=== PATIENT | male | born 1965 | race Caucasian/White ===

== ENCOUNTER → 2016-12-31 | Day surgery (SDC) | payer OTHER ==
--- NOTE | 2016-12-22 10:20 | MH ---
cc: HELGA RUGGIERO M.D. DATE OF ADMISSION 12/31/2016 ADMISSION DIAGNOSIS 1. 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 Pain of the left elbow HISTORY OF PRESENT ILLNESS The patient is a 51-year-old white male who has experienced bilateral elbow pain of almost two years duration. He had noted the onset of his symptoms initially related to golfing activities, has occurred when he was hitting golf balls into a practice net in a repetitive fashion. He became quite enthusiastic with regards to this routine that resulted in pain involving the lateral aspect of both elbows for which he was initially evaluated by his primary care physician who treated the patient with a series of cortisone injections about both elbows with only temporary relief being noted. The patient also was taking meloxicam and gabapentin for additional medication. He had to discontinue his golfing activities but continued to exercise on a routine basis while experiencing pain about both elbows for which he subsequently began wearing an elastic elbow support and alternating between Bob-Gordon and icy hot application. He later underwent orthopedic evaluation with MRI scan of the left elbow reporting extensor tendinopathy and a partial thickness interstitial tear and adjacent tendinosis. A similar study of the right elbow had noted moderately severe tendinosis and a proximal common extensor tendon without an associated tear being reported. The patient continued to conform to conservative management but remained symptomatic with pain about both elbows for which he was later seen by the undersigned physician. At that time, he was treated with local cortisone injection and began utilizing both Aleve and Voltaren gel while being followed on an outpatient basis. He initially was able to experience some trend of improvement, but his symptoms gradually recurred for which he returned to the office in follow-up disposition. Repeat injections unfortunately did not provide the patient with the long-term benefit that he was seeking and thus he subsequently underwent operative intervention of his right elbow in October of this year that involved an osteoplasty of the elbow joint. The patient was able to experience a favorable response from treatment. He returned to the office in November of this year reporting that he was noting increasing mobility and lessening discomfort about the right elbow while continuing to experience lingering symptoms about his left elbow and, given the benefit from surgery that he had experienced, he expressed his desire to proceed with similar treatment about his left elbow. In compliance with his wishes, he has currently been scheduled for admission to the hospital in order that an osteoplasty of the left elbow be completed. He is right-hand dominant. PAST MEDICAL HISTORY, HOSPITALIZATIONS AND SURGERIES 1. Arthroscopic rotator cuff repair of the left shoulder 2. Arthrotomy of the right shoulder for history of trauma following a fall while participating in softball, a reconstructive procedure being completed at that time. 3. He has undergone cystoscopy and lithotripsy for history of renal lithiasis, 4. Hospitalization for cardiac observation later diagnosed as being stress. He denies active medical illnesses. MEDICATIONS Current medications Tramadol p.r.n. pain. ALLERGIES He denies any known drug allergies. REVIEW OF SYSTEMS He does wear glasses. No headache, seizure or syncope. No sinus congestion or epistaxis. Auditory acuity intact. No tinnitus. No bleeding gums or dysphagia. No cough, shortness of breath, upper respiratory infection, pneumonia or tuberculosis. No angina or heart disease. Appetite is good. Bowel movements regular. No hepatitis, gallbladder disease, ulcers or hemorrhoids. No urinary tract infection. He has a history of kidney stones. No prostate disease. Fracture of the right clavicle. History of herniated disk of his lumbosacral spine. No psychiatric illness. Remaining review of systems is unremarkable and noncontributory. FAMILY HISTORY The patient has been for over 10 years. He has one son and two daughters, all described as being in good health. His family history is positive for hypertension, diabetes, heart disease, kidney disease and skin cancer. SOCIAL HISTORY The patient completed an AA degree. 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 He denies active use of tobacco for at least five years but had been a 20 pack-year user in the past. Ethanol consumption very limited basis socially. PHYSICAL EXAMINATION GENERAL: Height 5 feet 8 inches, weight 175 pounds. An alert, oriented and responsive 51-year-old white male who sits quietly upon examination table with no apparent distress. HEENT: Pupils are equally round and reactive to light. Extraocular movements full. Sclerae clear. External nares clear. External auditory canals clear. Dental intact. Mucous membranes pink and moist. Pharynx clear. NECK: Supple with active range of motion and no significant pain. Carotid pulse palpable bilaterally. Trachea midline. Thyroid without enlargement. LUNGS: Clear to auscultation and percussion. No CVA tenderness. No discomfort throughout the dorsal lumbar spine. HEART: Regular rhythm. No murmur or gallop. ABDOMEN: Soft, nontender. Bowel sounds present. RECTAL: Per primary care physician. EXTREMITIES: Left elbow - There is pronounced tenderness overlying the prominence of the lateral epicondyle without distinct palpable deformity. Satisfactory mobility of the elbow joint with no sensation of crepitation or instability. Mild discomfort is elicited with stress dorsi and volar flexion of the wrist as well as pronation, supination maneuvering. Automation Specialist strength intact. Sensory intact. Radial pulse palpable. NEUROLOGIC: Cranial nerves II-XII grossly intact. 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 The nature of the planned surgical procedure, the potential complications and risks associated, the expectations of surgery and the consent form were thoroughly reviewed with the patient prior to his admission to the hospital. Chance has indicated his full understanding regarding all of the above and given consent to proceed with treatment as outlined. MD BARRETT Weaver/ /4:28 PM /10:19 AM
[~2016-12-31] VITALS: Ht 172.7 cm; Wt 82.2 kg
[~2016-12-31] MED LIST: *morphine SULFATE 8 MG/ML PERIprocedure ONLY ONE; BUPIVACAINE HCL PF 0.5% 30 ML VIAL INFIL ONE; BUPIVACAINE HCL PF 0.5% 30 ML VIAL NERV BLOCK ONE; CHLORHEXIDINE GLUCONATE 2 % 1 PACK (2 CLOTHS) TOPICAL PRN; DEXAMETHASONE SOD PHOS 4 MG/ML VIAL IV ONE; DEXAMETHASONE SOD PHOS 4 MG/ML VIAL ONE; DO NOT ADM ANY ANTICOAGULANT DRUGS PRN; FAMOTIDINE 20 MG/2 ML VIAL ONE; GENTAMICIN SULFATE 80 MG/2 ML VIAL ONE; IBUP-1129 PO; INSULIN HUMAN REGULAR 1,000 UNITS/10 ML VIAL SQ PRN; KETOROLAC TROMETHAMINE 60 MG/2 ML (IM) VIAL IM ONE; LACTATED RINGER'S 1000 ML IV PRN; METOPROLOL TARTRATE 25 MG TAB PO PRN; MIDAZOLAM HCL 2 MG/2 ML VIAL ONE; MORPHINE SULFATE 8 MG/ML INJ IM PRN; MULTTAB67 PO; ONDANSETRON HCL 4 MG/2 ML VIAL IV PUSH ONE; PHENERGAN 25 MG IM; POVIDONE IODINE 5% (ANTISEPSIS KIT) 4 APPLICATIONS EACH NARE PRN; POVIDONE IODINE 7.5% SCRUB 118 ML BOTTLE TOPICAL SCH; PROPOFOL 200 MG/20 ML AMP IV ONE; SODIUM CHLORID 0.9% 500 ML IV PRN; TURM500C3 PO; [UNRECOGNIZED DRUG - OTHER] IM; ceFAZolin 2 GM PREMIX 50 ML IV SCH; ePHEDrine/NS 25 MG/5 ML SYR IV ONE; oxyCODONE/ACETAMINOPHEN 10 MG/325 MG TAB PO PRN; oxyCODONE/ACETAMINOPHEN 5 MG/325 MG TAB ONE
[2016-12-31 05:30] VITALS: BP 118/81; PULSE 75; RESP 16; TEMP 97.8; O2SAT 99
[2016-12-31 10:15] VITALS: BP 116/69; PULSE 84; RESP 16; TEMP 98; O2SAT 96
--- NOTE | 2016-12-31 17:32 | MP ---
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 PROCEDURE: Osteoplasty of the left elbow. SURGEON Maria A ANESTHESIA General by LMA. FORMAT: Following induction of satisfactory general anesthesia by LMA insertion as completed per the Department of Anesthesia a tourniquet was established around the proximal portion of the left upper extremity. The extremity proper was isolated with a U drape thereafter being prepped with Betadine solution and draped into a sterile field in the routine manner. Prior to initiation of the actual procedure the standard time-out protocol was completed all parameters were appropriately addressed and confirmed by operating room personnel. The extremity was elevated for approximately 1 minute. The tourniquet thus inflated to 200 mmHg pressure. A sharp oblique incision was initiated over the lateral aspect of the elbow region directly overlying the palpable prominence of the lateral epicondyle. The incision was developed underlying subcutaneous tissue with hemostasis maintained by electrocautery. By deepening dissection the origin of the extensor mechanism of the forearm was exposed and by palpation the prominence of the lateral epicondyle readily identified. There was some erythematous changes involving the origin of the extensor tendon with a distinct tear was not appreciated. An elliptical incision of the reactive tissue was completed and thereafter the extensor mechanism was elevated from the attachment site adjacent to the lateral epicondyle with a lateral epicondyle exposed. There was an obvious bony ridge in the midportion of the bony structure that was felt to be consistent with the chronic irritated process. Utilizing both rongeurs and a small bone rasp an osteoplasty was completed contouring the lateral epicondyle to a smooth surface as appreciated by visual and digital inspection. Upon completion of same the wound was thoroughly irrigated with saline solution. Hemostasis maintained by electrocautery. A local injection with 0.25% Marcaine without epinephrine was accomplished thereafter. The divided portion of the extensor origin was reapproximated with 2-0 Vicryl suture and skin margins with a running subcuticular 3-0 Vicryl suture over which Steri-Strips were applied. Xeroform gauze and a bulky dry sterile dressing were placed. The tourniquet was deflated after 23 minutes of tourniquet time a sling was positioned. The patient was transferred to a hospital stretcher and returned to recovery room in satisfactory condition having tolerated his operative procedure well. Estimated blood loss was less than 5 cc's. MD BARRETT Weaver/ /8:35 AM /5:10 PM
== END | disposition home or self-care (01) ==
LOC: HSDC 05:24
PROVIDERS: ATTEND Orthopaedic Surgery
DX: M77.12 Lateral epicondylitis, left elbow (principal); M25.522 Pain in left elbow
CPT/HCPCS: 01712; 24359; J0690; J1100; J1885; J2250; J2270; J2405; J3010; J7120; J1580